=== PATIENT | female | born 1940 | race Caucasian/White ===

== ENCOUNTER 2017-08-22 18:46 | Inpatient (IN) | payer MEDICARE ==
[~2017-08-22] VITALS: Ht 157.5 cm; Wt 70.8 kg
--- NOTE | 2017-08-22 18:50 | NUR ---
[id number] FOR LEFT GROIN,LEFT THIGH PAIN S/P FALL. NO KO. A/OX 3. BREATHING EVEN AND UNLABORED. NO SOB, NAD, VITALS STABLE. SAFETY AND COMFORT MEASURES IN PLACE. AWAITING MD ORDERS.
--- NOTE | 2017-08-22 19:14 | NUR ---
PATIENT TAKEN TO CT VIA STRETCHER.
--- NOTE | 2017-08-22 19:14 | NUR ---
REPORT GIVEN TO HUAN MONTOYA FOR YINKA.
--- NOTE | 2017-08-22 19:39 | NUR ---
EKG AT BEDSIDE
--- NOTE | 2017-08-22 19:41 | NUR ---
DR SUAZO ON THE PHONE WITH DR SIDHU THERAPIST RESPIRATORY ORTHO
--- NOTE | 2017-08-22 19:56 | NUR ---
BOOKIE AT BEDSIDE
[2017-08-22 19:57] LABS: BASOPHILS % (AUTO) 0.2 % (0.0-2.0); EOSINOPHILS % (AUTO) 0.4 % (0.0-6.0); HEMATOCRIT 36 % (33-45); HEMOGLOBIN 12.5 g/dL (11.5-14.8); LYMPHOCYTES # (AUTO) 1.5 /CMM (0.8-4.8); MEAN CORPUSCULAR HGB CONC 35 g/dl (31.0-36.0); MEAN CORPUSCULAR VOLUME 94 fL (82-100); MONOCYTES # (AUTO) 1.1 /CMM (0.1-1.30); MONOCYTES % (AUTO) 8.6 % (2.0-12.0); NEUTROPHILS # (AUTO) 9.7 /CMM (1.8-8.9); NEUTROPHILS % (AUTO) 78.8 % (43.0-81.0); PLATELET COUNT (AUTO) 208 /CMM (150-450); RDW COEFFICIENT OF VARIATION 12.3 (11.5-15.0); RED BLOOD CELL COUNT(AUTO) 3.82 MIL/uL (4.0-5.2); WHITE BLOOD COUNT (AUTO) 12.3 K/uL (4.3-11.0)
[2017-08-22 20:11] LABS: CALCIUM, SERUM 9.5 mg/dL (8.5-10.1); CARBON DIOXIDE 28 mmol/L (21-32); CHLORIDE 102 mmol/L (98-107); CREATININE 1.1 mg/dL (0.6-1.3); GLUCOSE 164 mg/dL (74-106); POTASSIUM 4.2 mmol/L (3.5-5.1); SODIUM SERUM 137 mmol/L (136-145); UREA NITROGEN, BLOOD 24 mg/dL (7-18)
[2017-08-22 20:28] LABS: INR 0.94 (0.85-1.15)
[2017-08-22] MEDS ORDERED: ONDANSETRON HCL/PF - ER 4 MG/2 ML VIAL IV ONE (20:30)
[2017-08-22] MEDS ORDERED: MORPHINE SULFATE INJ 2 MG/ML DISP.SYRIN IV ONE (20:30)
[2017-08-22] MEDS ORDERED: MORPHINE SULFATE INJ 4 MG/ML DISP.SYRIN ONE (20:34)
[2017-08-22] MEDS ORDERED: IV NS 0.9% 1,000 ML IV PRN (20:34)
[2017-08-22] MEDS ORDERED: ONDANSETRON HCL/PF 4 MG/2 ML VIAL ONE (20:34)
[2017-08-22] MEDS ORDERED: HYDROMORPHONE INJ 2 MG/ML DISP.SYRIN IV PRN (21:00)
[2017-08-22] MEDS ORDERED: DEXTROSE 50%-WATER 50 ML DISP.SYRIN IV PRN (21:00)
[2017-08-22] MEDS ORDERED: TEMAZEPAM 15 MG CAPSULE PO PRN (21:00)
[2017-08-22] MEDS ORDERED: MAGNESIUM HYDROXIDE 30 ML UDC PO PRN (21:00)
[2017-08-22] MEDS ORDERED: ACETAMINOPHEN W/ CODEINE#3 1 EA TABLET PO PRN (21:00)
[2017-08-22 21:05] VITALS: BP 186/92
--- NOTE | 2017-08-22 21:05 | NUR ---
RN ADMITTING NOTES PATIENT ENTERED THE UNIT VIA GURNEY ACCOMPANIED BY ER STAFF. NO SOB NOTED, BREATHING EVEN AND UNLABORED, PT IS ALERT AND ORIENTED X 4, CAREGIVER AT BEDSIDE. PT VERBALIZED THAT SHE STILL HAS A LOT OF PAIN. ORIENTED PT TO ADMISSION PROCESS, ROOM, ROOM MATE, CALL LIGHT, USE OF CALL LIGHT AND PT VERBALIZED UNDERSTANDING. PATIENT IS AWARE OF SAFETY NEEDS. ALL PATIENT'S NEEDS ATTENDED TO AT THIS TIME PLACED BED IN LOW POSITION, LOCKED IN PLACE, CALL LIGHT PLACED WITHIN EASY REACH. PT REQUESTED FOR CG TO STAY, CG ALLOWED TO STAY WITH CHARGE NURSE'S APPROVAL. INFORMED PT AND CG THAT IT WILL ONLY BE ALLOWED FOR TONIGHT. VERBALIZED UNDERSTANDING.
[2017-08-22] MEDS: ONDANSETRON HCL/PF 4 MG/2 ML VIAL IVP PRN (21:48)
[2017-08-22] MEDS: BLOOD SUGAR DIAGNOSTIC 1 EACH STRIP IN SCH (21:50)
[2017-08-22] MEDS: ATORVASTATIN 40 MG TABLET PO SCH (21:51)
[2017-08-22] MEDS: ENOXAPARIN SODIUM 40 MG/0.4 ML DISP.SYRIN SQ SCH (22:10)
--- NOTE | 2017-08-22 23:00 | NUR ---
RN NOTES ATTEMPTED TO INSERT BOOKER CATHETER 2 TIMES BUT WAS UNABLE TO, INFORMED CHARGE NURSE AND CHARGE NURSE ALSO ATTEMPTED TO INSERT BOOKER CATHETER 2X BUT WAS UNSUCCESSFUL. PT VERBALIZED THAT SHE CAN USE THE BED PRESTON FOR NOW, TOLERATED WELL. WILL CONTINUE TO MONITOR PT.
[2017-08-23] MEDS: HYDROMORPHONE INJ 2 MG/ML DISP.SYRIN IV PRN ×4 (00:50→19:50)
--- NOTE | 2017-08-23 00:50 | NUR ---
RN NOTES PATIENT VERBALIZED THAT SHE IS STILL EXPERIENCING 10/10 PAIN LEVEL. REPOSITIONED PT AND ADMINISTERED ICE PACK BUT OF NO HELP. INFORMED FORMULA MIXER DEVYN AND RECEIVED ORDER TO INCREASE DOSE OF DILAUDID TO 1MG Q4H PRN. ALL ORDERS NOTED AND CARRIED OUT. WILL CONTINUE TO MONITOR PT.
[2017-08-23 05:55] VITALS: BP 146/99
[2017-08-23] MEDS: BLOOD SUGAR DIAGNOSTIC 1 EACH STRIP IN SCH ×4 (06:25→21:48)
[2017-08-23 06:32] LABS: APPEARANCE,URINE CLEAR (CLEAR); BILIRUBIN,URINE NEGATIVE (NEGATIVE); BLOOD, URINE 1+ Ery/uL (NEGATIVE); COLOR,URINE YELLOW (YELLOW); KETONES,URINE NEGATIVE (NEGATIVE); LEUKOCYTE ESTERASE ,URINE NEGATIVE (NEGATIVE); NITRITE, URINE NEGATIVE (NEGATIVE); PROTEIN,URINE NEGATIVE (NEGATIVE); UGLUCOSE NEGATIVE (NEGATIVE); UROBILINOGEN,URINE 0.2 EU/dL (0.2)
[2017-08-23 06:36] LABS: BASOPHILS % (AUTO) 0.2 % (0.0-2.0); HEMATOCRIT 36 % (33-45); HEMOGLOBIN 12.4 g/dL (11.5-14.8); LYMPHOCYTES # (AUTO) 1.2 /CMM (0.8-4.8); LYMPHOCYTES % (AUTO) 7.8 % (20.0-44.0); MEAN CORPUSCULAR HGB CONC 34 g/dl (31.0-36.0); MEAN CORPUSCULAR VOLUME 97 fL (82-100); MONOCYTES # (AUTO) 1.6 /CMM (0.1-1.30); MONOCYTES % (AUTO) 10.5 % (2.0-12.0); NEUTROPHILS # (AUTO) 12.2 /CMM (1.8-8.9); NEUTROPHILS % (AUTO) 80.5 % (43.0-81.0); PLATELET COUNT (AUTO) 190 /CMM (150-450); RDW COEFFICIENT OF VARIATION 13.3 (11.5-15.0); RED BLOOD CELL COUNT(AUTO) 3.69 MIL/uL (4.0-5.2); WHITE BLOOD COUNT (AUTO) 15.2 K/uL (4.3-11.0)
--- NOTE | 2017-08-23 06:40 | NUR ---
RN CLOSING NOTES PATIENT IN BED, ASLEEP BUT EASILY AROUSABLE, CAREGIVER AT BEDSIDE. ALERT AND ORIENTED X 4, NO SOB NOTED, BREATHING EVEN AND UNLABORED, IN STABLE CONDITION. PT SLEPT WELL FOR THE REST OF THE SHIFT. CONTINUES TO RECEIVE O2 VIA NC @2LPM AND IS RECEIVING IVF ORDERED VIA IVP ON RIGHT HAND G#20, INTACT AND PATENT, IVF UNFUSING WELL. ALL PATIENT'S NEEDS ATTENDED TO THROUGHOUT THE SHIFT. UNABLE TO SUCCESSFULLY INSERT BOOKER CATHETER ASIDE FROM MULTIPLE ATTEMPTS. WILL ENDORSE TO AM SHIFT NURSE FOR CONTINUITY OF CARE.
[2017-08-23 06:53] LABS: CALCIUM, SERUM 8.8 mg/dL (8.5-10.1); CARBON DIOXIDE 28 mmol/L (21-32); CHLORIDE 104 mmol/L (98-107); CREATININE 1.5 mg/dL (0.6-1.3); GLUCOSE 206 mg/dL (74-106); MAGNESIUM 1.8 mg/dL (1.8-2.4); PHOSPHORUS 3.3 mg/dL (2.5-4.9); POTASSIUM 4.7 mmol/L (3.5-5.1); SODIUM SERUM 140 mmol/L (136-145); UREA NITROGEN, BLOOD 24 mg/dL (7-18)
[2017-08-23 06:57] LABS: CHOLESTEROL 166 mg/dL (<200); HDL CHOLESTEROL 67 mg/dL (40-60); LDL 85 mg/dL (0-99); THYROID STIMULATING HORMONE 1.114 uIU/mL (0.358-3.74); TRIGLYCERIDES 130 mg/dL (30-150)
[2017-08-23 07:16] LABS: BACTERIA,URINE Rare /HPF (None Seen); SQUAMOUS EPITHELIAL CELL,UR Few /HPF (None Seen); WBC,URINE NONE SEEN /HPF (0-3)
[2017-08-23 08:00] VITALS: BP 143/92
--- NOTE | 2017-08-23 08:00 | NUR ---
MS RN OPENING NOTES RECEIVED PATIENT IN STABLE CONDITION. PATIENT REQUESTING PAIN MEDICATION FOR HER LEFT FEMUR FRACTURE. DILAUDID 1MG GIVEN. BEDSIDE RAILS ARE UPX2. BED IS LOCKED AND LOWERED. CALL LIGHT IS WITHIN REACH. IV LINE IS INTACT AND PATENT. WILL CONTINUE TO MONITOR.
[2017-08-23] MEDS: ASPIRIN 81 MG TAB.CHEW PO SCH (08:27)
[2017-08-23] MEDS: DOCUSATE SODIUM 100 MG CAPSULE PO SCH ×2 (08:29→17:29)
[2017-08-23] MEDS: SERTRALINE HCL 50 MG TABLET PO SCH (08:29)
[2017-08-23] MEDS ORDERED: LINA5TAB PO (08:47)
[2017-08-23] MEDS ORDERED: CARV3.12 PO (08:47)
[2017-08-23] MEDS ORDERED: ATOR20TA PO (08:47)
[2017-08-23] MEDS ORDERED: ASPI-1169 PO (08:47)
[2017-08-23] MEDS ORDERED: IRBE300T19 PO (08:47)
[2017-08-23] MEDS ORDERED: IRBESARTAN (150MG) 150 MG TABLET PO SCH (09:00)
[2017-08-23] MEDS: PANTOPRAZOLE 40 MG VIAL IV SCH (09:10)
[2017-08-23] MEDS: ONDANSETRON HCL/PF 4 MG/2 ML VIAL IVP PRN ×2 (09:22→15:22)
--- NOTE | 2017-08-23 12:30 | NUR ---
PATIENTS BLOOD SUGAR IS 205. HELD OFF ON INSULIN DUE TO PATIENT BEING NPO FOR SURGERY TOMORROW AT 0700.
[2017-08-23 16:00] VITALS: BP 147/82
[2017-08-23] MEDS: INSULIN REGULAR, HUMAN 100 UNIT/ML 3 ML VIAL SQ PRN ×2 (17:45→21:53)
--- NOTE | 2017-08-23 18:45 | NUR ---
MS RN CLOSING NOTES PATIENT IS IN STABLE CONDITION. IN NO APPARENT DISTRESS. BEDSIDE RAILS ARE UPX2. BED IS LOCKED AND LOWERED. CALL LIGHT IS WITHIN REACH. IV LINE IS INTACT AND PATENT. WILL ENDORSE CARE TO SLIP OPERATOR NURSE FOR YINKA.
[2017-08-23] MEDS ORDERED: IV NS 0.9% 1,000 ML BAG IV ONE (19:30)
--- NOTE | 2017-08-23 19:40 | NUR ---
RN MS OPENING NOTES RECEIVED PATIENT AWAKE ALERT AND ORIENTED X4 , RESPIRATIONS EVEN AND UNLABORED WITH EQUAL RISE AND FALL OF CHEST, NOTED WITH 2 LITERS VIA NC 02 SAT AT 94-95%. PATIENT COMPLAINT OF PAIN TO LEFT HIP AREA 9/ PRN DILAUDID REQUESTED BY PATIENT,VITAL SIGNS WNL AT THIS TIME, WILL ADMINISTER ORDERED. BOOKER CATHETER INTACT AND FLOWING WELL, NOTED URINE YELLOW. RIGHT HAND IV SITE #22 GAUGE INTACT AND PATENT, NO REDNESS, NO INFILTRATION PRESENT, IVF RUNNING ORDERED. ORIENTED TO STAFF. CALL LIGHT,CALL LIGHT KEPT WITHIN REACH, SAFETY MEASURES RENDERED, FLUIDS OFFERED TOLERATED, MADE PATIENT AWARE OF NPO STATUS AT MIDNIGHT. ALL NEEDS ATTENDED AT THIS TIME, PATIENT REMAINS COMFORTABLE WILL CONTINUE TO MONITOR.
[2017-08-23 19:58] VITALS: BP 162/83
[2017-08-23 20:00] VITALS: BP 162/83
--- NOTE | 2017-08-23 20:31 | NUR ---
PT. REFUSING TO GO DOWN FOR XRAY, PT. IN SEVERE PAIN, WE TRIED TO DO XRAY ON BEDSIDE, UNABLE TO DO CROSS TABLE LATERAL. INFORMED RN (WILLOW) ABOUT THE SITUATION AND TOLD HER THAT WE DID CT PELVIS AND FEMUR XRAY YESTERDAY.
[2017-08-23] MEDS: ENOXAPARIN SODIUM 40 MG/0.4 ML DISP.SYRIN SQ SCH (21:00)
--- NOTE | 2017-08-23 22:04 | NUR ---
RN MS NOTES SPOKE TO DR. GUTIERREZ SHEPARD REGARDING LOVENOX AND PATIENT HAS PROCEDURE IN THE AM FOR LEFT HIP HEMIARTHROPLASTY WITH NEW ORDER TO HOLD DOSE NOTED AND CARRIED OUT ALSO MADE AWARE PATIENT REFUSED TO HAVE LATERAL XRAY DONE ORDERED BY RICH YOUSIF, PATIENT ALSO REFUSED TO [employer]ARM[employer] RECOMMENDATION FOR XRAY DOWNSTAIRS PATIENT REFUSED X 3.
[2017-08-23] MEDS: ATORVASTATIN 40 MG TABLET PO SCH (22:33)
[2017-08-23 22:58] LABS: CALCIUM, SERUM 8.4 mg/dL (8.5-10.1); CARBON DIOXIDE 26 mmol/L (21-32); CHLORIDE 104 mmol/L (98-107); CREATININE 1.4 mg/dL (0.6-1.3); GLUCOSE 169 mg/dL (74-106); POTASSIUM 4.4 mmol/L (3.5-5.1); SODIUM SERUM 139 mmol/L (136-145); UREA NITROGEN, BLOOD 25 mg/dL (7-18)
[2017-08-24] MEDS: IV NS 0.9% 1,000 ML IV PRN (02:29)
--- NOTE | 2017-08-24 02:46 | NUR ---
RN MS NOTES REPOSITIONING OFFERED, PATIENT REFUSED STATED SHE IS COMFORTABLE AT THIS TIME, IN SUPINE POSITION, ALL NEEDS ATTENDED AT THIS TIME WILL CONTINUE TO MONITOR.
[2017-08-24] MEDS: BLOOD SUGAR DIAGNOSTIC 1 EACH STRIP IN SCH ×4 (06:02→21:19)
--- NOTE | 2017-08-24 06:30 | NUR ---
RN MS CLOSING NOTES PATIENT AWAKE ALERT AND ORIENTED X4 , RESPIRATIONS EVEN AND UNLABORED WITH EQUAL RISE AND FALL OF CHEST, NOTED WITH 2 LITERS VIA NC 02 SAT AT 98%. ,VITAL SIGNS WNL AT THIS TIME, BS AT 174 NO INSULIN GIVEN PRIOR TO PROCEDURE. BOOKER CATHETER INTACT AND FLOWING WELL, NOTED URINE YELLOW. RIGHT HAND IV SITE #22 GAUGE INTACT AND PATENT, NO REDNESS, NO INFILTRATION PRESENT,,CALL LIGHT KEPT WITHIN REACH, SAFETY MEASURES RENDERED, MADE NPO STATUS AT MIDNIGHT. REPORT GIVEN TO SURGERY STAFF VITAL SIGNS NOTED 161/79,100,18,98.0,98%, NO DISTRESS PRESENT ALL NEEDS ATTENDED AT THIS TIME, PATIENT LEFT IN STABLE CONDITION. ACCOMPANIED BY DAUGHTER MIRA.
[2017-08-24 06:36] LABS: BASOPHILS % (AUTO) 0.1 % (0.0-2.0); EOSINOPHILS % (AUTO) 0.9 % (0.0-6.0); HEMATOCRIT 33 % (33-45); HEMOGLOBIN 11.2 g/dL (11.5-14.8); LYMPHOCYTES # (AUTO) 0.9 /CMM (0.8-4.8); MEAN CORPUSCULAR HGB CONC 34 g/dl (31.0-36.0); MEAN CORPUSCULAR VOLUME 98 fL (82-100); MONOCYTES # (AUTO) 1.2 /CMM (0.1-1.30); MONOCYTES % (AUTO) 9.4 % (2.0-12.0); NEUTROPHILS # (AUTO) 10.9 /CMM (1.8-8.9); NEUTROPHILS % (AUTO) 82.6 % (43.0-81.0); PLATELET COUNT (AUTO) 153 /CMM (150-450); RDW COEFFICIENT OF VARIATION 13.3 (11.5-15.0); RED BLOOD CELL COUNT(AUTO) 3.38 MIL/uL (4.0-5.2); WHITE BLOOD COUNT (AUTO) 13.2 K/uL (4.3-11.0)
[2017-08-24] MEDS ORDERED: BACITRACIN 50000 UNITS/VIAL ONE (06:46)
[2017-08-24 06:47] LABS: CALCIUM, SERUM 8.9 mg/dL (8.5-10.1); CARBON DIOXIDE 28 mmol/L (21-32); CHLORIDE 104 mmol/L (98-107); CREATININE 1.1 mg/dL (0.6-1.3); GLUCOSE 191 mg/dL (74-106); POTASSIUM 4.5 mmol/L (3.5-5.1); SODIUM SERUM 138 mmol/L (136-145); UREA NITROGEN, BLOOD 20 mg/dL (7-18)
[2017-08-24] MEDS ORDERED: BUPIVACAINE 0.25% 75 MG/30 ML VIAL ONE (06:54)
--- NOTE | 2017-08-24 07:30 | NUR ---
REPORT RECEIVED PT CURRENTLY OFF FLOOR IN PROCEDURE. WILL CONTINUE PLAN OF CARE.
[2017-08-24] MEDS ORDERED: ROCURONIUM BROMIDE 50 MG/5 ML ONE ×2 (07:54→09:07)
[2017-08-24] MEDS: DOCUSATE SODIUM 100 MG CAPSULE PO SCH ×2 (09:00→18:14)
[2017-08-24] MEDS: SERTRALINE HCL 50 MG TABLET PO SCH (09:00)
[2017-08-24] MEDS: PANTOPRAZOLE 40 MG VIAL IV SCH (09:00)
[2017-08-24] MEDS: ASPIRIN 81 MG TAB.CHEW PO SCH (09:00)
[2017-08-24] MEDS ORDERED: ONDANSETRON 4 MG TAB.RAPDIS PO PRN (09:30)
[2017-08-24] MEDS ORDERED: ALBUTEROL FS 2.5 MG/3 ML VIAL.NEB ONE (10:34)
[2017-08-24] MEDS ORDERED: FUROSEMIDE 20 MG/2 ML VIAL ONE (10:46)
[2017-08-24] MEDS ORDERED: HYDROMORPHONE INJ 2 MG/ML DISP.SYRIN ONE (11:30)
[2017-08-24] MEDS ORDERED: ONDANSETRON HCL/PF 4 MG/2 ML VIAL ONE (11:33)
[2017-08-24] MEDS ORDERED: MORPHINE SULFATE INJ 2 MG/ML DISP.SYRIN IV PRN (12:00)
[2017-08-24] MEDS ORDERED: oxyCODONE IR immediate release 5 MG PO PRN (12:00)
--- NOTE | 2017-08-24 12:01 | NUR ---
PT RECEIVED S/P L HEMIARTHROPLASTY AFTER REPORT RECEIVED FROM YOLIE MONTOYA. PT BROUGHT ON PORTABLE 02 VIA PT BED. PT RESTING COMFORTABLY WITH EYES CLOSED. NO S/S OR C/O PAIN OR DISTRESS NOTED. VS WNL 111/55, 91. 97.5 94% ON 2L NC. WILL CONTINUE PLAN OF CARE.
[2017-08-24] MEDS: GLUCERNA SHAKE 237 ML CAN PO SCH ×2 (12:30→18:20)
[2017-08-24 16:00] VITALS: BP 132/74
[2017-08-24] MEDS: oxyCODONE IR immediate release 5 MG PO PRN (18:14)
[2017-08-24] MEDS: CEFAZOLIN 2 GM in IV D5W 50 ML IV SCH (18:15)
[2017-08-24] MEDS: INSULIN REGULAR, HUMAN 100 UNIT/ML 3 ML VIAL SQ PRN ×2 (18:20→21:23)
--- NOTE | 2017-08-24 18:43 | NUR ---
CHANGE OF SHIFT REPORT PT RESTING COMFORTABLY IN BED. NO S/S OR C/O PAIN OR DISTRESS NOTED. SIDE RAILS UP X2, CALL LIGHT LEFT WITHIN REACH. PT KEPT CLEAN, DRY, AND COMFORTABLE. NO SIGNIFICANT CHANGES SINCE PREVIOUS SHIFT. WILL GIVE REPORT TO JUANA MONTOYA.
--- NOTE | 2017-08-24 19:55 | NUR ---
RN INITIAL NOTES: RECEIVED REPORT FROM BILLY MONTOYA, PT IN BED, AWAKE, A/O X3, ON 2L VIA NC RESPIRATION EVEN AND UNLABORED, CAREGIVER AT BED SIDE WILL STAY 24/7, IV ACCESS ON RIGHT WRIST G 20 PATENT AND FLUSHING WELL, ON HL. PT HAD POSSIBLE FLUID OVERLOAD POST PROCEDURE AND GIVEN LASIX, PER DAY RN. BOOKER CATHETER IN PLACED DRAINING INTO YELLOW COLORED URINE, WILL BE DC ON POST OP DAY 2 PER MD. PT S/P LEFT HIP HEMIARTHROPLASTY WITH DR VILLANUEVA 08/24/17 DRESSING ON LEFT HIP C/D/I NO ACTIVE BLEEDING NOTED, ICE COMPRESS PROVIDED. PT HAS ABDUCTION PILLOW IN PLACED. SCD FOR LEGS. SAFETY PRECAUTIONS FOR FALL INITIATED CALL LIGHT IN REACH WILL CONTINUE MONITORING PT.
[2017-08-24 20:00] VITALS: BP 134/62
[2017-08-24 20:21] VITALS: BP 134/62
--- NOTE | 2017-08-24 20:30 | NUR ---
RN NOTES: PT C/O 12/20 PAIN ON HER LEFT HIP, JUST RECEIVED OXY IR 2HRS AGO, PER PT SHE'S UNABLE TO TOLERATE IT, OFFERED OTHER PAIN MEDICATION LIKE MORPHINE, PER PT SHE DOESNT WANT TO TAKE IT BECAUSE IT MAKES HER "JUMPY". SHE REQUESTED TO TAKE DILAUDID, SHE RECEIVED IT LAST NIGHT.
[2017-08-24 20:44] VITALS: BP 135/63
[2017-08-24] MEDS: HYDROMORPHONE INJ 2 MG/ML DISP.SYRIN IV PRN (20:49)
--- NOTE | 2017-08-24 20:50 | NUR ---
GIVE THE PT PRN DILAUDID 1 MG IV PUSH FOR PT COMPLAIN OF L HIP PAIN 10/10
[2017-08-24] MEDS: ONDANSETRON 4 MG TAB.RAPDIS SL PRN (21:00)
--- NOTE | 2017-08-24 21:01 | NUR ---
PT GOT PRN ZOFRAN SUBLINGUAL 4 MG FOR COMPLAIN OF NAUSEA
--- NOTE | 2017-08-24 21:25 | NUR ---
BS IS 228 . GIVE REGULAR INSULIN 4 UNITS PER SLIDING SCALE
[2017-08-24 21:32] VITALS: BP 100/64
[2017-08-24] MEDS: ATORVASTATIN 40 MG TABLET PO SCH (21:34)
[2017-08-24] MEDS: CARVEDILOL 3.125 MG TABLET PO SCH (21:35)
[2017-08-24] MEDS ORDERED: ATORVASTATIN 40 MG TABLET PO SCH (22:00)
[2017-08-25] MEDS: CEFAZOLIN 2 GM in IV D5W 50 ML IV SCH ×3 (01:37→17:20)
[2017-08-25] MEDS: BLOOD SUGAR DIAGNOSTIC 1 EACH STRIP IN SCH ×4 (05:51→21:23)
[2017-08-25 06:01] VITALS: BP 137/68
[2017-08-25] MEDS: oxyCODONE IR immediate release 5 MG PO PRN (06:04)
[2017-08-25] MEDS: INSULIN REGULAR, HUMAN 100 UNIT/ML 3 ML VIAL SQ PRN ×4 (06:07→21:25)
--- NOTE | 2017-08-25 06:07 | NUR ---
BS 258,6UNITS OF INSULIN GIVEN PER SLIDING SCALE,
[2017-08-25 06:45] LABS: BASOPHILS % (AUTO) 0.1 % (0.0-2.0); EOSINOPHILS % (AUTO) 0.4 % (0.0-6.0); HEMATOCRIT 26 % (33-45); HEMOGLOBIN 8.9 g/dL (11.5-14.8); LYMPHOCYTES % (AUTO) 7.1 % (20.0-44.0); MEAN CORPUSCULAR HGB CONC 34 g/dl (31.0-36.0); MEAN CORPUSCULAR VOLUME 98 fL (82-100); MONOCYTES # (AUTO) 1.8 /CMM (0.1-1.30); MONOCYTES % (AUTO) 12.3 % (2.0-12.0); NEUTROPHILS # (AUTO) 11.8 /CMM (1.8-8.9); NEUTROPHILS % (AUTO) 80.1 % (43.0-81.0); PLATELET COUNT (AUTO) 156 /CMM (150-450); RDW COEFFICIENT OF VARIATION 13.5 (11.5-15.0); RED BLOOD CELL COUNT(AUTO) 2.67 MIL/uL (4.0-5.2); WHITE BLOOD COUNT (AUTO) 14.7 K/uL (4.3-11.0)
--- NOTE | 2017-08-25 06:47 | NUR ---
RN CLOSING NOTES PT REMAINS A/O X3, CAREGIVER AT BEDSIDE.PT ON 2 L NC, IV ACCESS REMAIN PATENT AND FLUSHING WELL ,F/C EMPTY BY THE WELT INSOLE CHANNELER ,LAST PAIN MEDICATION GIVEN AT 0609AM. VS ARE STABLE, NEEDS ATTENDED. BED IN LOW AND LOCKED POSITION, CALL LIGHT WITHIN EASY REACH, FOR PT TODAY. WILL ENDORSE TO DAY RN FOR CONTINUITY OF CARE.
[2017-08-25 07:03] LABS: ALANINE AMINOTRANSFERASE 25 U/L (12-78); ALBUMIN 2.4 g/dL (3.4-5.0); ALKALINE PHOSPHATASE 36 U/L (46-116); ASPARTATE AMINOTRANSFERASE 17 U/L (15-37); BILIRUBIN,TOTAL 0.3 mg/dL (0.2-1.0); CALCIUM, SERUM 8.3 mg/dL (8.5-10.1); CARBON DIOXIDE 26 mmol/L (21-32); CHLORIDE 103 mmol/L (98-107); CREATININE 1.3 mg/dL (0.6-1.3); GLUCOSE 230 mg/dL (74-106); MAGNESIUM 1.9 mg/dL (1.8-2.4); PHOSPHORUS 2.3 mg/dL (2.5-4.9); POTASSIUM 4.7 mmol/L (3.5-5.1); SODIUM SERUM 137 mmol/L (136-145); TOTAL PROTEIN, SERUM 5.8 g/dL (6.4-8.2); UREA NITROGEN, BLOOD 24 mg/dL (7-18)
--- NOTE | 2017-08-25 07:20 | NUR ---
RN NOTES PATIENT RECEIVED ASLEEP, RESTING COMFORTABLY IN BED, EASILY AROUSABLE DURING CARE, RESPIRATIONS EVEN AND UNLABORED, ABLE TO MAKE NEEDS KNOWN, DENIES ANY PAIN OR DISCOMFORT AT THIS TIME. IV ACCESS PATENT AND INTACT NO REDNESS OR INFILTRATION NOTED. SAFETY MEASURES IN PLACE, KEPT CLEAN DRY AND COMFORTABLE CALL LIGHT WITHIN EASY REACH WILL CONTINUE TO MONITOR
[2017-08-25 08:00] VITALS: BP 135/60
[2017-08-25] MEDS: DOCUSATE SODIUM 100 MG CAPSULE PO SCH ×2 (08:31→17:20)
[2017-08-25] MEDS: GLUCERNA SHAKE 237 ML CAN PO SCH ×2 (08:31→17:13)
[2017-08-25] MEDS: LINAGLIPTIN 5 MG TABLET PO SCH (08:33)
[2017-08-25] MEDS: SERTRALINE HCL 50 MG TABLET PO SCH ×2 (08:34→21:24)
[2017-08-25] MEDS: LOSARTAN POTASSIUM 50 MG TABLET PO SCH (08:34)
[2017-08-25] MEDS: ASPIRIN 81 MG TAB.CHEW PO SCH (08:35)
[2017-08-25] MEDS: PANTOPRAZOLE 40 MG VIAL IV SCH (08:38)
[2017-08-25 08:42] LABS: IRON, SERUM 20 ug/dl (50-175); TOTAL IRON BINDING CAPACITY 205 ug/dl (250-450)
[2017-08-25 08:43] LABS: FERRITIN 248 ng/mL (8-388)
[2017-08-25] MEDS: ENOXAPARIN SODIUM 40 MG/0.4 ML DISP.SYRIN SQ SCH (09:00)
[2017-08-25] MEDS ORDERED: ASPIRIN 81 MG TAB.CHEW PO SCH (09:00)
[2017-08-25] MEDS ORDERED: IRBESARTAN (150MG) 150 MG TABLET PO SCH (09:00)
--- NOTE | 2017-08-25 10:00 | NUR ---
RN MED NOTES PT REFUSED ZOLOFT STATES "I TAKE IT AT NIGHT EVERY NIGHT, I WANT IT TO BE THE SAME" MADE AWARE, WILL CONTINUE TO MONITOR
[2017-08-25] MEDS: HYDROMORPHONE INJ 2 MG/ML DISP.SYRIN IV PRN (10:12)
[2017-08-25] MEDS ORDERED: K PHOS NEUTRAL 250 MG TABLET PO ONE (11:00)
[2017-08-25] MEDS ORDERED: ERGOCALCIFEROL (VITAMIN D 2) 50,000 UNIT CAPSULE PO SCH (11:00)
[2017-08-25] MEDS: ACETAMINOPHEN 325 MG TABLET PO PRN ×2 (11:52→22:25)
[2017-08-25 13:58] LABS: EOSINOPHILS % (AUTO) 0.8 % (0.0-6.0); HEMATOCRIT 26 % (33-45); HEMOGLOBIN 8.8 g/dL (11.5-14.8); LYMPHOCYTES # (AUTO) 1.2 /CMM (0.8-4.8); LYMPHOCYTES % (AUTO) 7.3 % (20.0-44.0); MEAN CORPUSCULAR HGB CONC 34 g/dl (31.0-36.0); MEAN CORPUSCULAR VOLUME 98 fL (82-100); MONOCYTES # (AUTO) 1.6 /CMM (0.1-1.30); MONOCYTES % (AUTO) 10.2 % (2.0-12.0); NEUTROPHILS # (AUTO) 13.1 /CMM (1.8-8.9); NEUTROPHILS % (AUTO) 81.7 % (43.0-81.0); PLATELET COUNT (AUTO) 173 /CMM (150-450); RDW COEFFICIENT OF VARIATION 13.5 (11.5-15.0); RED BLOOD CELL COUNT(AUTO) 2.67 MIL/uL (4.0-5.2); WHITE BLOOD COUNT (AUTO) 16.1 K/uL (4.3-11.0)
[2017-08-25 14:59] LABS: BAND % (MANUAL) 2 % (0.0-5.0); LYMPHOCYTES % (MANUAL) 6 % (16-48); MONOCYTES % (MANUAL) 4 % (0-11.0); NEUTROPHILS % (MANUAL) 88 (42-76)
[2017-08-25] MEDS: IV NS 0.9% 1,000 ML IV PRN (15:16)
[2017-08-25] MEDS: SOD FERRIC GLUC 125 MG in IV NS 0.9% 100 ML IV SCH (15:50)
[2017-08-25 16:00] VITALS: BP 102/60
[2017-08-25] MEDS: CARVEDILOL 3.125 MG TABLET PO SCH (17:20)
--- NOTE | 2017-08-25 18:56 | NUR ---
RN CLOSING NOTES PATIENT ASLEEP, RESTING COMFORTABLY IN BED, EASILY AROUSABLE DURING CARE, RESPIRATIONS EVEN AND UNLABORED, ABLE TO MAKE NEEDS KNOWN, DENIES ANY PAIN OR DISCOMFORT AT THIS TIME. IV ACCESS PATENT AND INTACT NO REDNESS OR INFILTRATION NOTED. FC DRAINING CLEAR YELLOW URINE, FLUSHED WITH NS TO MAINTAIN PATENCY WITH STERILE TECHNIQUE. SAFETY MEASURES IN PLACE, KEPT CLEAN DRY AND COMFORTABLE CALL LIGHT WITHIN EASY REACH WILL CONTINUE TO MONITOR AND ENDORSE TO NEXT SHIFT FOR CONTINUITY OF CARE
--- NOTE | 2017-08-25 19:36 | NUR ---
MS RN OPENING NOTES PT A/O X 3 RESTING IN THE BED ON NC 2L. NO DISTRESS, NO COMPLAIN OF PAIN AT THIS TIME NOTED. CAREGIVER AT BEDSIDE. IV LINE PERIPHERAL ON RIGHT WRIST G 22 PATENT, RECEIVING NS 0.9 AT RATE 75ML/HR. F/C IN PLACE. L HIP DRESSING INTACT AND CLEAN. BED IN LOW POSITION, BED BREAKS ON , CALL LIGHT IN REACH. WILL CONTINUE MONITOR THE PT.
[2017-08-25 20:00] VITALS: BP 128/61
--- NOTE | 2017-08-25 20:30 | NUR ---
RN CLOSING NOTES: PT HAS ABDUCTION PILLOW IN PLACED
[2017-08-25] MEDS: ATORVASTATIN 40 MG TABLET PO SCH (21:24)
--- NOTE | 2017-08-25 21:26 | NUR ---
BS 206 , 4 UNITS INSULIN GIVEN PER SLIDING SCALE
[2017-08-26] VITALS (13 sets, daily range): BP systolic 110–143; BP diastolic 54–73
[2017-08-26] MEDS: IV NS 0.9% 1,000 ML IV PRN (03:46)
--- NOTE | 2017-08-26 05:00 | NUR ---
BOOKER CATHETER REMOVAL AND DRESSING CHANGE: REMOVED PT'S BOOKER CATHETER AT THIS TIME, EMPTIED 600ML OF DANUTA COLORED URINE, ALSO CHANGED PT'S LEFT HIP SURGICAL DRESSING ORDERED BY , CLEANSED WITH NS PAT DRY APPLIED SURGICAL DRESSING. NO ACTIVE BLEEDING NOTED ON SURGICAL SITE, AREA NOTED TO BE SORE AND HAS BRUISES.
--- NOTE | 2017-08-26 05:10 | NUR ---
RN NOTES: PT HAD ONE LARGE BM, ALSO COLLECTED STOOL FOR OB SENT TO LAB
[2017-08-26] MEDS: BLOOD SUGAR DIAGNOSTIC 1 EACH STRIP IN SCH (05:35)
[2017-08-26] MEDS: INSULIN REGULAR, HUMAN 100 UNIT/ML 3 ML VIAL SQ PRN ×3 (06:20→17:44)
[2017-08-26 06:30] LABS: BASOPHILS % (AUTO) 0.1 % (0.0-2.0); EOSINOPHILS % (AUTO) 1.5 % (0.0-6.0); HEMATOCRIT 23 % (33-45); LYMPHOCYTES # (AUTO) 1.2 /CMM (0.8-4.8); LYMPHOCYTES % (AUTO) 8.9 % (20.0-44.0); MEAN CORPUSCULAR HGB CONC 35 g/dl (31.0-36.0); MEAN CORPUSCULAR VOLUME 97 fL (82-100); MONOCYTES # (AUTO) 1.4 /CMM (0.1-1.30); MONOCYTES % (AUTO) 11.1 % (2.0-12.0); NEUTROPHILS # (AUTO) 10.3 /CMM (1.8-8.9); NEUTROPHILS % (AUTO) 78.4 % (43.0-81.0); PLATELET COUNT (AUTO) 147 /CMM (150-450); RDW COEFFICIENT OF VARIATION 13.5 (11.5-15.0); RED BLOOD CELL COUNT(AUTO) 2.38 MIL/uL (4.0-5.2); WHITE BLOOD COUNT (AUTO) 13.1 K/uL (4.3-11.0)
--- NOTE | 2017-08-26 06:45 | NUR ---
RN CLOSING NOTES PT REMAINS A/O X3, CAREGIVER AT BEDSIDE.PT ON 2 L NC, IV ACCESS REMAIN PATENT AND FLUSHING WELL,F/C REMOVED .HASN'T VOID, NO ABDOMINAL DISTENTION NOTED, PT DENIES ANY PAIN IN THE BLADDER AREA/ABDOMEN. VS ARE STABLE, P/S L HIP DRESSING CHENGED, NEEDS ATTENDED. BED IN LOW AND LOCKED POSITION, CALL LIGHT WITHIN EASY REACH, FOR PT TODAY. WILL ENDORSE TO DAY RN FOR CONTINUITY OF CARE.
--- NOTE | 2017-08-26 07:00 | NUR ---
RN OPENING NOTES RECEIVED PT. IN BED SLEEPING WITH HEAD OF BED UP. PT.'S CAREGIVER WAS AT BEDSIDE. BREATHING UNLABORED, AND EVENLY ON OXYGEN AT 3L/MIN VIA NASAL CANNULA. NO S/S OF ACUTE DISTRESS. IV FLUIDS AT BEDSIDE. BED IS IN LOWEST, AND LOCKED POSITION. 2 SIDE RAILS UP, AND CALL LIGHT WITHIN REACH. WILL CONTINUE TO ASSESS AND MONITOR.
[2017-08-26 07:03] LABS: ALANINE AMINOTRANSFERASE 16 U/L (12-78); ALKALINE PHOSPHATASE 43 U/L (46-116); ASPARTATE AMINOTRANSFERASE 17 U/L (15-37); BILIRUBIN,TOTAL 0.4 mg/dL (0.2-1.0); CARBON DIOXIDE 26 mmol/L (21-32); CHLORIDE 104 mmol/L (98-107); CREATININE 1.1 mg/dL (0.6-1.3); GLUCOSE 217 mg/dL (74-106); MAGNESIUM 1.8 mg/dL (1.8-2.4); PHOSPHORUS 2.6 mg/dL (2.5-4.9); POTASSIUM 4.4 mmol/L (3.5-5.1); SODIUM SERUM 138 mmol/L (136-145); TOTAL PROTEIN, SERUM 5.5 g/dL (6.4-8.2); UREA NITROGEN, BLOOD 24 mg/dL (7-18)
[2017-08-26 07:42] LABS: OCCULT BLOOD STOOL NEGATIVE (NEGATIVE)
--- NOTE | 2017-08-26 08:00 | NUR ---
RN NOTES PT. VOIDED IN DIAPER AFTER BOOKER CATHETER WAS REMOVED. PT. WAS CLEANED, AND REPOSITIONED.
[2017-08-26] MEDS: GLUCERNA SHAKE 237 ML CAN PO SCH ×2 (08:25→17:13)
[2017-08-26] MEDS: DOCUSATE SODIUM 100 MG CAPSULE PO SCH ×2 (09:00→17:00)
[2017-08-26] MEDS: PANTOPRAZOLE 40 MG VIAL IV SCH (09:28)
[2017-08-26] MEDS: LOSARTAN POTASSIUM 50 MG TABLET PO SCH (09:28)
[2017-08-26] MEDS: ASPIRIN 81 MG TAB.CHEW PO SCH (09:28)
[2017-08-26] MEDS: LINAGLIPTIN 5 MG TABLET PO SCH (09:29)
[2017-08-26] MEDS: ENOXAPARIN SODIUM 40 MG/0.4 ML DISP.SYRIN SQ SCH (09:45)
[2017-08-26] MEDS: ACETAMINOPHEN 325 MG TABLET PO PRN ×3 (09:52→22:09)
[2017-08-26] MEDS: TRAMADOL HCL 50 MG TABLET PO PRN ×3 (09:52→21:17)
[2017-08-26] MEDS ORDERED: DEXTROSE 50%-WATER 50 ML DISP.SYRIN IV PRN (10:00)
[2017-08-26] MEDS: HYDROMORPHONE INJ 2 MG/ML DISP.SYRIN IV PRN (11:00)
[2017-08-26] MEDS: ONDANSETRON 4 MG TAB.RAPDIS SL PRN (11:35)
[2017-08-26] MEDS: BLOOD SUGAR DIAGNOSTIC 1 EACH STRIP VI SCH ×3 (12:02→21:14)
[2017-08-26 12:08] LABS: LYMPHOCYTES % (MANUAL) 10 % (16-48); MONOCYTES % (MANUAL) 13 % (0-11.0); NEUTROPHILS % (MANUAL) 77 (42-76)
[2017-08-26] MEDS: CARVEDILOL 3.125 MG TABLET PO SCH (18:04)
--- NOTE | 2017-08-26 19:34 | NUR ---
RECEIVED THE PT WITH ONGOING BLOOD TRANSFUSION AT THE RATE 100ML/HR. VS ARE STABLE , NO DISTRESS NOTED. PT ON NC 2.OL, PT A/O X3 , S/P LEFT HIP SURGERY DAY 2 , LEFT HIP DRESSING CLEAN AND DRY. THE AREA NOTED TO BE SORE AND HAS SOME BRUISES. CAREGIVER AT THE BED SIDE.NO TRANSFUSION REACTION NOTED. BED IN LOW POSITION ,CALL LIGHT WITHIN REACH . WILL CONTINUE MONITOR THE PT
--- NOTE | 2017-08-26 19:35 | NUR ---
RN NOTES: PER DAY RN, SHE STATED FERRLICIT DUE AT 1400 ISNT GIVEN BECAUSE PT WILL HAVE BLOOD TRANSFUSION AND THAT PER PHARMACY TO CALL THEM ONCE BLOOD IS FINISHED. BUT THE BLOOD TRANSFUSION WAS STARTED AT 1415PM, AND WILL BE FINISHED AT 2014, WE HAVE NO PHARMACY AT NIGHT THEY LEAVE AT 1900PM FOR THE WEEKEND. INFORMED PHARMACY OPERATIONS SPECIALIST REGARDING THE ISSUE.
--- NOTE | 2017-08-26 19:59 | NUR ---
RN CLOSING NOTES PT. IS IN BED SLEEPING. PT.'S CAREGIVER IS AT BEDSIDE. PT. IS BREATHING UNLABORED, AND EVENLY ONYGEN AT 2L/MIN VIA NASAL CANNULA. NO S/S OF ACUTE DISTRESS. BLOOD TRANSFUSION RUNNING AT 100 ML/HR. IV FLUIDS WERE ON HOLD TODAY PER MD. CHEST X RAY RESULTS WERE SHOWN TO BATHROOM TILING PROFESSIONAL, AND NO NEW ORDERS WERE GIVEN. DVT PUMPS ARE WORKING ON BOTH LOWER EXTREMITIES, AND ABDUCTOR PILLOW IN PLACE. BED IS IN LOWEST, AND LOCKED POSITION. 2 SIDE RAILS UP, AND CALL LIGHT WITHIN REACH. WILL ENDORSE REPORT TO NURSE.
--- NOTE | 2017-08-26 20:04 | NUR ---
BLOOD TRANSFUSION 1 UNIT COMPLETED , VS RECORDED,
--- NOTE | 2017-08-26 20:05 | NUR ---
RN NOTES: 1UNIT PRBC TRANSFUSION COMPLETED, FLUSHED LINE WITH NS, PT DENIES ANY SOB CHEST PAIN NO FEVER NOTED, MD AWARE OF PT'S HR, VS STABLE, NO BLOOD TRANSFUSION REACTION NOTED, WILL CONTINUE MONITORING PT
--- NOTE | 2017-08-26 20:22 | NUR ---
CALLED LAB TO DRAW BLOOD AFTER 1 HR TRANSFUSION DONE .
[2017-08-26] MEDS: *INSULIN REGULAR(HUMULIN R)HUM 100 UNIT/ML VIAL SQ PRN (21:16)
[2017-08-26] MEDS: ATORVASTATIN 40 MG TABLET PO SCH (21:17)
[2017-08-26 21:27] LABS: BASOPHILS % (AUTO) 0.3 % (0.0-2.0); EOSINOPHILS % (AUTO) 1.6 % (0.0-6.0); HEMATOCRIT 29 % (33-45); HEMOGLOBIN 9.7 g/dL (11.5-14.8); LYMPHOCYTES # (AUTO) 1.2 /CMM (0.8-4.8); LYMPHOCYTES % (AUTO) 9.5 % (20.0-44.0); MEAN CORPUSCULAR HGB CONC 34 g/dl (31.0-36.0); MEAN CORPUSCULAR VOLUME 93 fL (82-100); MONOCYTES # (AUTO) 1.3 /CMM (0.1-1.30); MONOCYTES % (AUTO) 9.6 % (2.0-12.0); NEUTROPHILS # (AUTO) 10.4 /CMM (1.8-8.9); PLATELET COUNT (AUTO) 150 /CMM (150-450); RDW COEFFICIENT OF VARIATION 16.3 (11.5-15.0); RED BLOOD CELL COUNT(AUTO) 3.11 MIL/uL (4.0-5.2); WHITE BLOOD COUNT (AUTO) 13.1 K/uL (4.3-11.0)
[2017-08-26] MEDS ORDERED: SOD FERRIC GLUC 62.5 MG/5 ML AMPUL IV ONE (21:39)
[2017-08-26] MEDS: SOD FERRIC GLUC 125 MG in IV NS 0.9% 100 ML IV SCH (21:54)
--- NOTE | 2017-08-26 21:56 | NUR ---
RN NOTES: LATE ADMIN OF FERRLECIT: THIS MEDICATION IS DUE AT 1400, HOWEVER DAY LINDSAY ZAMORA WASNT ABLE TO ADMINISTER THE DOSE, SHE REPORTED THAT ITS DUE TO BLOOD TRANSFUSION, AND SHE CLAIMED THAT SHE NOTIFIED PHARMACY, AND PER PHARMACY TO ADMIN THE DOSE AFTER TRANSFUSION. NO FERRLECIT FOUND IN THE [place], NO PHARM AT NIGHT, RELAYED ISSUE TO INTERMEDIATE SCHOOL TEACHERROBERTO LAU, MEDS OVERRODE BY LINDSAY BEARD, 5RIGHTS VERIFIED, ADMINISTERING THE DOSE OF FERRLECIT AT THIS TIME.
--- NOTE | 2017-08-26 22:09 | NUR ---
prn tylenol: pt c/o mild left hip pain 05/20 requesting fro tylenol, prn tylenol 650 mg tab po administered at this time
[2017-08-26] MEDS: SERTRALINE HCL 50 MG TABLET PO SCH (22:10)
--- NOTE | 2017-08-26 22:42 | NUR ---
RN NOTES: INFORMED PHARMACY ANALYST MD REAGARDING LATEST RESULT OF H/H .10/08 , AFTER 1UNIT PRBC TRANSFUSION, PER PHARMACY ANALYST MD "NO ACTION NEEDED AT THIS TIME".
--- NOTE | 2017-08-27 01:47 | NUR ---
RNNOTES: PT C/O PAIN IN HER IV ACCESS, INFORMED THAT WE CAN REINSERT A NEW ONE IF ITS CAUSING DISCOMFORT BUT PT REFUSED, SHE STATED " SHE DOESNT WANT TO GO THROUGH INSERTION AGAIN BECAUSE SHE WAS POKED SO MANY TIMES FOR BLOOD DRAW AND IV REINSERTION". EDUCATION PROVIDED TO THE PT, AND INFORM ABOUT POLICY OF HAVING IV ACCESS, BUT PT REFUSED AND STATED SHE WILL BE LEAVING TODAY TO [facility], SO SHE PREFERS NOT TO HAVE ONE. "
--- NOTE | 2017-08-27 04:30 | NUR ---
AM CARE AND WOUND CARE: ASSISTED PRESALES CONSULTANT IN PROVIDING BED BATH TO THE PT, TURN USING LOG ROLL TECHNIQUE, CAREGIVER AT BED SIDE. LEFT HIP DRESSING PERFORMED AT THIS TIME, NOTED AREA TO BE SORE AND BRUISE AND WITH CLOSED BLISTER FROM SURGICAL DRESSING. CLEANSED AREA WITH NS, PAT DRY AND PLACED SURGICAL DRESSING ORDERED BY MD.
--- NOTE | 2017-08-27 04:35 | NUR ---
RN NOTES: TOOK PICTURES OF PT'S SKIN ISSUES PT WILL POSSIBLY GOING HOME TO [facility] IN AM.
[2017-08-27] MEDS: BLOOD SUGAR DIAGNOSTIC 1 EACH STRIP VI SCH ×2 (05:34→11:55)
[2017-08-27] MEDS: *INSULIN REGULAR(HUMULIN R)HUM 100 UNIT/ML VIAL SQ PRN (06:32)
--- NOTE | 2017-08-27 06:46 | NUR ---
RN CLOSING NOTES PT A/O X3, ON 2 L NC, IV ACCESS REMAIN PATENT AND FLUSHING WELL. PT Hgb IMPROVED TO 9.7 AFTER 1 UNIT BLOOD TRANSFUSION.VS ARE STABLE, L HIP DRESSING CHANGED, NEEDS ATTENDED. BLE OFFLOADED,ABDUCTION PILLOW IN PLACED. REFUSED IV REINSERTION.BED IN LOW AND LOCKED POSITION, CALL LIGHT WITHIN EASY REACH, FOR POSSIBLE DC TO [facility],EXIT CARE COMPLETED, PICTURES TAKEN. WILL ENDORSE TO DAY RN FOR CONTINUITY OF CARE. WAITING FOR DISCHARGE
[2017-08-27 06:52] LABS: BASOPHILS % (AUTO) 0.3 % (0.0-2.0); EOSINOPHILS % (AUTO) 1.9 % (0.0-6.0); HEMATOCRIT 28 % (33-45); HEMOGLOBIN 9.6 g/dL (11.5-14.8); LYMPHOCYTES # (AUTO) 1.3 /CMM (0.8-4.8); LYMPHOCYTES % (AUTO) 9.8 % (20.0-44.0); MEAN CORPUSCULAR HGB CONC 34 g/dl (31.0-36.0); MEAN CORPUSCULAR VOLUME 93 fL (82-100); MONOCYTES # (AUTO) 1.3 /CMM (0.1-1.30); MONOCYTES % (AUTO) 10.5 % (2.0-12.0); NEUTROPHILS # (AUTO) 9.9 /CMM (1.8-8.9); NEUTROPHILS % (AUTO) 77.5 % (43.0-81.0); PLATELET COUNT (AUTO) 153 /CMM (150-450); RDW COEFFICIENT OF VARIATION 16.2 (11.5-15.0); RED BLOOD CELL COUNT(AUTO) 2.99 MIL/uL (4.0-5.2); WHITE BLOOD COUNT (AUTO) 12.8 K/uL (4.3-11.0)
[2017-08-27 07:06] LABS: CALCIUM, SERUM 8.5 mg/dL (8.5-10.1); CARBON DIOXIDE 28 mmol/L (21-32); CHLORIDE 104 mmol/L (98-107); CREATININE 0.9 mg/dL (0.6-1.3); GLUCOSE 180 mg/dL (74-106); POTASSIUM 4.5 mmol/L (3.5-5.1); SODIUM SERUM 138 mmol/L (136-145); UREA NITROGEN, BLOOD 21 mg/dL (7-18)
--- NOTE | 2017-08-27 07:15 | NUR ---
RN OPENING NOTES RECEIVED PT. IN BED SLEEPING WITH HEAD OF BED UP. PT.'S DAUGHTER IS AT BEDSIDE. BREATHING UNLABORED, AND EVENLY ON OXYGEN AT 2L/MIN VIA NASAL CANNULA. NO S/S OF ACUTE DISTRESS. DVT PUMPS ARE ON AND WORKING. BED IS IN LOWEST, AND LOCKED POSITION. 2 SIDE RAILS UP, AND CALL LIGHT WITHIN REACH. WILL CONTINUE TO ASSESS AND MONITOR.
[2017-08-27] MEDS: ACETAMINOPHEN 325 MG TABLET PO PRN ×2 (07:46→14:21)
[2017-08-27] MEDS: GLUCERNA SHAKE 237 ML CAN PO SCH (07:46)
[2017-08-27 08:00] VITALS: BP 127/69
[2017-08-27] MEDS: DOCUSATE SODIUM 100 MG CAPSULE PO SCH (09:52)
[2017-08-27] MEDS: ASPIRIN 81 MG TAB.CHEW PO SCH (09:52)
[2017-08-27] MEDS: PANTOPRAZOLE 40 MG VIAL IV SCH (09:52)
[2017-08-27] MEDS: ENOXAPARIN SODIUM 40 MG/0.4 ML DISP.SYRIN SQ SCH (09:54)
[2017-08-27 10:10] VITALS: BP 109/59
[2017-08-27] MEDS: LOSARTAN POTASSIUM 50 MG TABLET PO SCH (10:10)
[2017-08-27] MEDS: LINAGLIPTIN 5 MG TABLET PO SCH (10:10)
[2017-08-27] MEDS ORDERED: DOCU-141 PO (11:50)
[2017-08-27] MEDS ORDERED: SOD62.5V IV (11:50)
[2017-08-27] MEDS ORDERED: INSU100V28 SQ (11:50)
[2017-08-27] MEDS ORDERED: LOSA50TA3 PO (11:50)
[2017-08-27] MEDS ORDERED: ENOX40DI SQ (11:50)
[2017-08-27] MEDS ORDERED: Insulin Glargine,Hum SQ (11:50)
[2017-08-27] MEDS ORDERED: ACET325T53 PO (11:50)
[2017-08-27] MEDS ORDERED: TRAM50TA2 PO (11:50)
[2017-08-27] MEDS ORDERED: NUT.237L45 PO (11:50)
[2017-08-27] MEDS ORDERED: *INS REG SQ (11:50)
[2017-08-27] MEDS ORDERED: PANT40VI IV (11:50)
[2017-08-27] MEDS ORDERED: SERT50TA PO (11:50)
[2017-08-27] MEDS ORDERED: ATOR40TA PO (11:50)
[2017-08-27] MEDS ORDERED: TEMA15CA5 PO (11:50)
[2017-08-27] MEDS ORDERED: Ergocalciferol (Vitamin D 2) PO (11:50)
[2017-08-27] MEDS: INSULIN REGULAR, HUMAN 100 UNIT/ML 3 ML VIAL SQ PRN (11:56)
[2017-08-27] MEDS: SOD FERRIC GLUC 125 MG in IV NS 0.9% 100 ML IV SCH (14:20)
--- NOTE | 2017-08-27 15:59 | NUR ---
RN NOTES DISCHARGE REPORT GIVEN VIA PHONE TO LINDSAY HILL AT [facility].
[2017-08-27] MEDS ORDERED: INSULIN GLARGINE, 100 UNIT/ML CARTRIDGE SQ SCH (22:00)
[2017-08-29 09:22] LABS: CALCITRIOL VIT D,1, 25 DIHYDRO 7.8 pg/mL (19.9-79.3)
== END 2017-08-27 16:40 | DRG 469 ==
LOC: ER 18:47 → MED 20:46
PROVIDERS: ADMIT Nurse Practitioner Acute Care; ATTEND Nurse Practitioner Acute Care
PROC: 0SRS0JZ Replacement of Left Hip Joint, Femoral Surface with Synthetic Substitute, Open Approach (ICD-10-PCS; principal; 2017-08-24 07:00)
PROC: 30233N1 Transfusion of Nonautologous Red Blood Cells into Peripheral Vein, Percutaneous Approach (ICD-10-PCS; 2017-08-26)
DX: S72.012A Unspecified intracapsular fracture of left femur, initial encounter for closed fracture (principal); N17.0 Acute kidney failure with tubular necrosis; D62 Acute posthemorrhagic anemia; W03.XXXA Other fall on same level due to collision with another person, initial encounter; E78.5 Hyperlipidemia, unspecified; I10 Essential (primary) hypertension; Z88.1 Allergy status to other antibiotic agents; D72.829 Elevated white blood cell count, unspecified; Z68.28 Body mass index [BMI] 28.0-28.9, adult; E66.9 Obesity, unspecified; F32.9 Major depressive disorder, single episode, unspecified; Z98.890 Other specified postprocedural states; K57.90 Diverticulosis of intestine, part unspecified, without perforation or abscess without bleeding; D50.9 Iron deficiency anemia, unspecified; E11.65 Type 2 diabetes mellitus with hyperglycemia; Y92.009 Unspecified place in unspecified non-institutional (private) residence as the place of occurrence of the external cause; Z79.84 Long term (current) use of oral hypoglycemic drugs
CPT/HCPCS: 36415; 71045-TC; 72170-TC; 72192-TC; 73552; 80048-TC; 80053-TC; 80061-TC; 81000-TC; 82272-TC; 82306; 82565-TC; 82652; 82728-TC; 82962-TC; 83540-TC; 83735-TC; 83970; 84100-TC; 84439-TC; 84443-TC; 85025-TC; 85730-TC; 86850-TC; 86921-TC; 87081-TC; 88305-TC; 88311-TC; 93307-TC; 97110-TC; 97116-TC; 97530-TC; A4217; A4606; A6209; A6402; C9113; J0690; J1100; J1170; J1650; J1815; J1940; J2270; J2370; J2405; J2704; J2710; J2916; J3490; J7030; J7050; J7060; P9016-BL; Q0162; Z7610